=== PATIENT | male | born 1945 | race Caucasian/White ===

== ENCOUNTER 2019-01-07 17:07 | Emergency (ER) | payer OTHER, MEDICAID ==
[~2019-01-07] VITALS: Ht 160 cm; Wt 76.2 kg
[~2019-01-07 17:07] MED LIST: ALPR1TAB2 PO; ASPI-862 PO; CALC625T64 PO; FURO-149 PO; GLU850 PO; HYDR12.55 PO; INDO-12 PO; LIP40 PO; LISI-600 PO; OMEP40CA33 PO; SER25 PO; SITA100T11 PO
[2019-01-07 17:40] VITALS: BP_SYST 139
[2019-01-07 17:48] LABS: BASOPHILS # (AUTO) 0.1 K/uL (0.0-0.2); BASOPHILS % (AUTO) 0.6 % (0.0-2.0); EOSINOPHILS # (AUTO) 0.3 K/uL (0.0-0.4); EOSINOPHILS % (AUTO) 2.9 % (0.0-4.0); HEMATOCRIT 39.8 % (36-54); HEMOGLOBIN 12.8 g/dL (14.0-18.0); LYMPHOCYTES # (AUTO) 1.7 K/uL (1.0-5.5); MEAN CORPUSCULAR HEMOGLOBIN 24 pg (27-31); MEAN CORPUSCULAR HGB CONC 32 % (32-36); MEAN CORPUSCULAR VOLUME 75 fL (79.0-98.0); MONOCYTES # (AUTO) 0.9 K/uL (0.0-1.0); MONOCYTES % (AUTO) 9.1 % (1.7-9.3); NEUTROPHILS # (AUTO) 7.1 K/uL (1.8-7.7); NEUTROPHILS % (AUTO) 70.4 % (40.0-70.0); PLATELET COUNT (AUTO) 254 K/uL (130-430); RED CELL DISTRIBUTION WIDTH 18.1 % (9.0-15.0); WHITE BLOOD COUNT (AUTO) 10.1 K/uL (4.8-10.8)
[2019-01-07 17:56] LABS: ANION GAP 15 (5-15); CALCIUM 9.2 mg/dL (8.4-11.0); CHLORIDE 101 mmol/L (98-107); CREATININE 1.66 mg/dL (0.55-1.30); GLUCOSE 144 mg/dL (70-99); POTASSIUM 3.9 mmol/L (3.5-5.1); SODIUM SERUM 140 mmol/L (136-145); UREA NITROGEN, BLOOD 33 mg/dL (8-21)
[2019-01-07 18:01] LABS: ALANINE AMINOTRANSFERASE 41 U/L (12-78); ALBUMIN 3.6 g/dL (3.4-4.8); ASPARTATE AMINOTRANSFERASE 30 U/L (10-37); TOTAL BILIRUBIN 0.2 mg/dL (0.0-1.0)
[2019-01-07 18:04] LABS: ACETAMINOPHEN < 1 ug/mL (1-30); ALCOHOL, BLOOD < 3 mg/dL (<10)
[2019-01-07 18:28] LABS: BILIRUBIN,URINE NEGATIVE (NEGATIVE); BLOOD, URINE 3+ (NEGATIVE); COLOR,URINE YELLOW (YELLOW); GLUCOSE,URINE NEGATIVE (NEGATIVE); KETONES,URINE TRACE (NEGATIVE); LEUKOCYTE ESTERASE ,URINE NEGATIVE (NEGATIVE); NITRITE, URINE NEGATIVE (NEGATIVE); PROTEIN URINE 2+ (NEGATIVE)
[2019-01-07 18:34] LABS: CLARITY/URINE HAZY (CLEAR)
[2019-01-07 18:36] LABS: BACTERIA,URINE FEW /HPF (None Seen); MUCUS,URINE None Seen /LPF (None Seen); RBC,URINE 20-50 /HPF (0-3); WBC,URINE 0-3 /HPF (0-3)
[2019-01-07 18:37] LABS: CHOLESTEROL 158 mg/dL (<200); HDL CHOLESTEROL 62 mg/dL (>45); LDL CHOLESTEROL 74 mg/dL (<100); TRIGLYCERIDES 56 mg/dL (30-150)
[2019-01-07 18:39] LABS: BARBITURATE, URINE NEGATIVE (NEG <=200); BENZODIAZEPINE, URINE NEGATIVE (NEG <=150); CANNABINOID, URINE NEGATIVE (NEG <=50); COCAINE, URINE NEGATIVE (NEG <=150); METHAMPHETAMINES SCREEN,URINE NEGATIVE (NEG <=500); OPIATE, URINE NEGATIVE (NEG <=100); PHENCYCLIDINE SCREEN,URINE NEGATIVE (NEG <=25); UR TRICYCLIC ANTIDEPRESSANTS NEGATIVE (NEG <=300); URINE AMPHETAMINE NEGATIVE (NEG <=500); URINE METHADONE NEGATIVE (NEG <=200); URINE OXYCODONE SCREEN NEGATIVE (NEG <=100); URINE PROPOXYPHENE SCREEN NEGATIVE (NEG <=300)
[2019-01-07 21:50] VITALS: BP_SYST 139
== END 2019-01-07 21:50 ==
LOC: SED 17:07
DX: I10 Essential (primary) hypertension (principal); E11.9 Type 2 diabetes mellitus without complications; K21.9 Gastro-esophageal reflux disease without esophagitis; Z02.89 Encounter for other administrative examinations; Z79.82 Long term (current) use of aspirin; Z79.84 Long term (current) use of oral hypoglycemic drugs; Z79.899 Other long term (current) drug therapy
CPT/HCPCS: 36415; 80053; 80061; 80307; 81000; 83036; 85025; 87081; 99285; G0480; G0481; G0482

== ENCOUNTER 2019-01-09 07:40 | Outpatient (CLI) | payer OTHER ==
[2019-01-09 08:46] LABS: BASOPHILS % (AUTO) 0.6 % (0.0-2.0); EOSINOPHILS # (AUTO) 0.4 K/uL (0.0-0.4); EOSINOPHILS % (AUTO) 5.2 % (0.0-4.0); HEMATOCRIT 36.2 % (36-54); HEMOGLOBIN 11.5 g/dL (14.0-18.0); LYMPHOCYTES # (AUTO) 1.3 K/uL (1.0-5.5); LYMPHOCYTES % (AUTO) 14.9 % (20.5-51.5); MEAN CORPUSCULAR HEMOGLOBIN 24 pg (27-31); MEAN CORPUSCULAR HGB CONC 32 % (32-36); MEAN CORPUSCULAR VOLUME 76 fL (79.0-98.0); MONOCYTES # (AUTO) 0.7 K/uL (0.0-1.0); MONOCYTES % (AUTO) 8.6 % (1.7-9.3); NEUTROPHILS # (AUTO) 6.1 K/uL (1.8-7.7); NEUTROPHILS % (AUTO) 70.7 % (40.0-70.0); PLATELET COUNT (AUTO) 211 K/uL (130-430); RED BLOOD CELL COUNT(AUTO) 4.75 MIL/uL (4.2-6.2); RED CELL DISTRIBUTION WIDTH 18.1 % (9.0-15.0); WHITE BLOOD COUNT (AUTO) 8.7 K/uL (4.8-10.8)
[2019-01-09 09:10] LABS: ANION GAP 8 (5-15); CALCIUM 8.4 mg/dL (8.4-11.0); CHLORIDE 106 mmol/L (98-107); CREATININE 1.29 mg/dL (0.55-1.30); GLUCOSE 86 mg/dL (70-99); POTASSIUM 3.5 mmol/L (3.5-5.1); SODIUM SERUM 141 mmol/L (136-145); UREA NITROGEN, BLOOD 32 mg/dL (8-21)
== END 2019-01-09 21:01 | disposition home or self-care (01) ==
LOC: SLB 07:40
PROVIDERS: ATTEND Psychiatry & Neurology Psychiatry
DX: Z00.00 Encounter for general adult medical examination without abnormal findings (principal)
CPT/HCPCS: 36415; 80048; 85025

== ENCOUNTER 2020-12-04 11:11 | Emergency (ER) | payer OTHER, MEDICAID ==
[~2020-12-04] VITALS: Ht 175.3 cm; Wt 77.1 kg
[~2020-12-04 11:11] MED LIST changes: -LISI-600 PO; +LISI20TA30 PO; +OMEP40CA20 PO; -OMEP40CA33 PO
--- NOTE | 2020-12-04 11:15 | NUR ---
Patient to ER bed H1 to gown for evaluation. Side rails up.
[2020-12-04 11:16] VITALS: BP_SYST 148
--- NOTE | 2020-12-04 11:19 | NUR ---
ER DR. BENOIT AT THE BEDSIDE EXAMINING PT
--- NOTE | 2020-12-04 11:20 | NUR ---
PT SANGEETHA FROM [facility] FOR MEDICAL CLEARANCE TO [facility] FOR INCREASED AGRESSIVE BEHAVIOR TOWARDS STAFF. PT TO GO TO ROOM 114A
--- NOTE | 2020-12-04 11:30 | NUR ---
LAB AT THE BEDSIDE FOR BLOOD DRAW
[2020-12-04 11:42] LABS: BASOPHILS # (AUTO) 0.1 K/uL (0.0-0.2); BASOPHILS % (AUTO) 0.8 % (0.0-2.0); EOSINOPHILS # (AUTO) 0.2 K/uL (0.0-0.4); EOSINOPHILS % (AUTO) 2.6 % (0.0-4.0); HEMATOCRIT 42.9 % (36-54); HEMOGLOBIN 13.9 g/dL (14.0-18.0); LYMPHOCYTES # (AUTO) 1.7 K/uL (1.0-5.5); LYMPHOCYTES % (AUTO) 19.2 % (20.5-51.5); MEAN CORPUSCULAR HEMOGLOBIN 25 pg (27-31); MEAN CORPUSCULAR HGB CONC 33 % (32-36); MEAN CORPUSCULAR VOLUME 76 fL (79.0-98.0); MONOCYTES # (AUTO) 0.8 K/uL (0.0-1.0); MONOCYTES % (AUTO) 8.8 % (1.7-9.3); NEUTROPHILS # (AUTO) 6.2 K/uL (1.8-7.7); NEUTROPHILS % (AUTO) 68.6 % (40.0-70.0); PLATELET COUNT (AUTO) 242 K/uL (130-430); RED BLOOD CELL COUNT(AUTO) 5.63 MIL/uL (4.2-6.2); RED CELL DISTRIBUTION WIDTH 16.5 % (9.0-15.0); WHITE BLOOD COUNT (AUTO) 9.1 K/uL (4.8-10.8)
[2020-12-04 11:48] LABS: ANION GAP 14 (5-15); CALCIUM 9.3 mg/dL (8.4-11.0); CHLORIDE 105 mmol/L (98-107); CREATININE 1.34 mg/dL (0.55-1.30); GLUCOSE 105 mg/dL (70-99); SODIUM SERUM 142 mmol/L (136-145); UREA NITROGEN, BLOOD 23 mg/dL (8-21)
[2020-12-04 11:54] LABS: ALANINE AMINOTRANSFERASE 23 U/L (12-78); ALBUMIN 3.5 g/dL (3.4-4.8); ASPARTATE AMINOTRANSFERASE 19 U/L (10-37); TOTAL BILIRUBIN 0.2 mg/dL (0.0-1.0)
[2020-12-04 11:55] LABS: ACETAMINOPHEN < 1 ug/mL (1-30); ALCOHOL, BLOOD < 3 mg/dL (<10)
[2020-12-04 11:56] LABS: CHOLESTEROL 167 mg/dL (<200); HDL CHOLESTEROL 56 mg/dL (>45); LDL CHOLESTEROL 91 mg/dL (<100); TRIGLYCERIDES 116 mg/dL (30-150)
--- NOTE | 2020-12-04 12:00 | NUR ---
PT MEDICALLY CLEARED.
[2020-12-04 16:46] LABS: BILIRUBIN,URINE NEGATIVE (NEGATIVE); CLARITY/URINE CLEAR (CLEAR); COLOR,URINE YELLOW (YELLOW); GLUCOSE,URINE NEGATIVE (NEGATIVE); KETONES,URINE NEGATIVE (NEGATIVE); LEUKOCYTE ESTERASE ,URINE NEGATIVE (NEGATIVE); NITRITE, URINE NEGATIVE (NEGATIVE); PH,URINE 5.5 (5.0-8.0); PROTEIN URINE 1+ (NEGATIVE); UROBILINOGEN,URINE 0.2 (0.2-1.0)
[2020-12-04 16:50] LABS: BLOOD, URINE TRACE (NEGATIVE)
[2020-12-04 17:06] LABS: BARBITURATE, URINE NEGATIVE (NEG <=200); BENZODIAZEPINE, URINE NEGATIVE (NEG <=150); CANNABINOID, URINE NEGATIVE (NEG <=50); COCAINE, URINE NEGATIVE (NEG <=150); METHAMPHETAMINES SCREEN,URINE NEGATIVE (NEG <=500); OPIATE, URINE NEGATIVE (NEG <=100); PHENCYCLIDINE SCREEN,URINE NEGATIVE (NEG <=25); UR TRICYCLIC ANTIDEPRESSANTS NEGATIVE (NEG <=300); URINE AMPHETAMINE NEGATIVE (NEG <=500); URINE METHADONE NEGATIVE (NEG <=200); URINE OXYCODONE SCREEN NEGATIVE (NEG <=100); URINE PROPOXYPHENE SCREEN NEGATIVE (NEG <=300)
[2020-12-04 17:10] LABS: BACTERIA,URINE RARE /HPF (None Seen); RBC,URINE NONE SEEN /HPF (0-3); WBC,URINE NONE SEEN /HPF (0-3)
[2020-12-04 17:45] VITALS: BP_SYST 169
--- NOTE | 2020-12-04 17:45 | NUR ---
Patient to be transferred to [facility]. Is being transferred due to higher level of care. Receiving facility has accepting physician and available space. ER physician has signed transfer form. Patient or responsible democrat has agreed to transfer and signed form. Patient belongings inventoried and will be sent with patient. Copy of nursing notes, lab reports, EKG, Physicians Orders and X-rays to be sent with patient. Report called to [facility] at receiving facility. Receiving physician is . [facility] service has been called for transfer.
== END 2020-12-04 17:45 ==
LOC: SED 11:11
DX: F20.9 Schizophrenia, unspecified (principal); I10 Essential (primary) hypertension; E11.9 Type 2 diabetes mellitus without complications; Z20.822 Contact with and (suspected) exposure to COVID-19; Z79.84 Long term (current) use of oral hypoglycemic drugs; Z79.899 Other long term (current) drug therapy
CPT/HCPCS: 36415; 80053; 80061; 80307; 81000; 83036; 85025; 87081; 87426; 99285; G0480; G0481; G0482

== ENCOUNTER 2020-12-04 20:03 | Emergency (ER) | payer OTHER, MEDICAID ==
[~2020-12-04] VITALS: Ht 167.6 cm; Wt 68.9 kg
[2020-12-04 20:07] VITALS: BP_SYST 197
--- NOTE | 2020-12-04 21:56 | NUR ---
Placed in room 05 . Placed on cardiac nurse, blood pressure machine and pulse oximeter. To gown for exam. Side rails up. Report given to MIKY CANCHOLA
[2020-12-04] MEDS ORDERED: LISINOPRIL 10 MG TABLET (PRINIVIL) PO ONE (22:00)
--- NOTE | 2020-12-04 22:01 | NUR ---
Dr. Vila bedside for pt eval
--- NOTE | 2020-12-04 22:05 | NUR ---
Joe VIVAS to ED he was seen here earlier, medical cleared, brought back from [facility] after being denied for elevated heart rate and blood pressure with systolic in the 190s. Patient seen here earlier and was combative with nursing staff, refusing to take his hypertensive meds. His vital signs had stabilized and he was medically cleared. Per EMS, patient with history of dementia and has been A&O x1, only responding to his name.
[2020-12-04] MEDS ORDERED: LISINOPRIL 10 MG TABLET (PRINIVIL) ONE (22:33)
--- NOTE | 2020-12-04 23:12 | NUR ---
VSS, BP and HR trending a bit lower, Dr. Quintanilla aware
[2020-12-05 00:13] LABS: BASOPHILS % (AUTO) 0.4 % (0.0-2.0); EOSINOPHILS % (AUTO) 0.2 % (0.0-4.0); HEMATOCRIT 41.6 % (36-54); HEMOGLOBIN 13.4 g/dL (14.0-18.0); LYMPHOCYTES # (AUTO) 1.2 K/uL (1.0-5.5); LYMPHOCYTES % (AUTO) 11.3 % (20.5-51.5); MEAN CORPUSCULAR HEMOGLOBIN 25 pg (27-31); MEAN CORPUSCULAR HGB CONC 32 % (32-36); MEAN CORPUSCULAR VOLUME 76 fL (79.0-98.0); MONOCYTES # (AUTO) 0.9 K/uL (0.0-1.0); MONOCYTES % (AUTO) 8.6 % (1.7-9.3); NEUTROPHILS # (AUTO) 8.7 K/uL (1.8-7.7); NEUTROPHILS % (AUTO) 79.5 % (40.0-70.0); PLATELET COUNT (AUTO) 251 K/uL (130-430); RED BLOOD CELL COUNT(AUTO) 5.44 MIL/uL (4.2-6.2); RED CELL DISTRIBUTION WIDTH 15.9 % (9.0-15.0); WHITE BLOOD COUNT (AUTO) 10.9 K/uL (4.8-10.8)
[2020-12-05] MEDS ORDERED: HALOPERIDOL LACTATE 5 MG/ML VIAL IM ONE (00:15)
--- NOTE | 2020-12-05 00:18 | NUR ---
Jeremias salmon in ED - 12/05/20 at 0130 by YURIDIA Pt remains in stable condition, family member bedside for emotional support
--- NOTE | 2020-12-05 00:32 | NUR ---
Pt remains in stable condition, as well as verbalizing that he feels fine
[2020-12-05 00:52] LABS: ALANINE AMINOTRANSFERASE 21 U/L (12-78); ALBUMIN 3.2 g/dL (3.4-4.8); ANION GAP 9 (5-15); ASPARTATE AMINOTRANSFERASE 16 U/L (10-37); CALCIUM 9.1 mg/dL (8.4-11.0); CHLORIDE 103 mmol/L (98-107); CREATININE 1.16 mg/dL (0.55-1.30); GLUCOSE 117 mg/dL (70-99); POTASSIUM 3.3 mmol/L (3.5-5.1); SODIUM SERUM 137 mmol/L (136-145); THYROID STIMULATING HORMONE 1.27 uIu/mL (0.36-3.74); TOTAL BILIRUBIN 0.3 mg/dL (0.0-1.0); UREA NITROGEN, BLOOD 18 mg/dL (8-21)
--- NOTE | 2020-12-05 01:58 | NUR ---
Called to inquire about BLS transport pt back
--- NOTE | 2020-12-05 02:53 | NUR ---
JAYCEE AT [facility] FOR CONSULTING PRACTICE DIRECTOR [id number]. MIKY CANCHOLA NOTIFIED
--- NOTE | 2020-12-05 03:35 | NUR ---
Pt remains in stable condition, resting on gurney rails up
--- NOTE | 2020-12-05 04:58 | NUR ---
Spoke with Rodney Acosta, report given and they're expecting pt's return after [id number]
--- NOTE | 2020-12-05 07:00 | NUR ---
INFORMED BY TRAVELING BUYER NURSE THAT [employer] [facility]ILITY EXAMINER WILL BE AT 0930. PT RESTING QUIETLY
--- NOTE | 2020-12-05 07:23 | NUR ---
RECEIVED PT, HYPERTENSIVE AT 205/106, CN MANUEL INFORMED. PER REPORT PT IS DISCHARGED ALREADY AND WAITING FOR TRANSPORTATION. DR DARBY INFORMED, ORDERS RECEIEVED.
[2020-12-05] MEDS ORDERED: cloNIDine HCL 0.1 MG TABLET PO ONE (07:45)
--- NOTE | 2020-12-05 07:46 | NUR ---
PT HYPERTENSIVE AT 199/103, MEDICATED ORDERED. PT DENIES ANY PAIN OR SOB.
--- NOTE | 2020-12-05 09:10 | NUR ---
REPEAT BP X3 IN BOTH ARMS, DIFFERENT MACHINES 74/48, P-66. DR DARBY INFORMED. AT BEDSIDE FOR RE-EXAM. CN NOTIFIED.
[2020-12-05] MEDS ORDERED: NS 500 ML IV ONE (09:30)
--- NOTE | 2020-12-05 09:31 | NUR ---
IV SALINE LOCK PLACED TO RT AC. IV FLUIDS STARTED ORDERED.
--- NOTE | 2020-12-05 09:50 | NUR ---
[facility] TRANSPORT AT BEDSIDE TO [facility] PATIENT. BP 99/51, HR-69 DR DARBY INFORMED, CN NOTIFIED. PT STABLE FOR TRANSFER PER DR DARBY. Addendum: 12/05/20 at 1014 by [email or web address] DC WITH [facility], ALL BELONGINGS WITH PT. DC [facility] TRANSPORT STAFF.
[2020-12-05 10:15] VITALS: BP_SYST 99
== END 2020-12-05 09:50 ==
LOC: SED 20:03
DX: I10 Essential (primary) hypertension (principal); E11.9 Type 2 diabetes mellitus without complications; K21.9 Gastro-esophageal reflux disease without esophagitis; Z79.899 Other long term (current) drug therapy; Z79.82 Long term (current) use of aspirin; Z79.84 Long term (current) use of oral hypoglycemic drugs
CPT/HCPCS: 36415; 80053; 83735; 84443; 84484; 85025; 93005; 96372; 99285

== ENCOUNTER 2023-05-20 16:19 | Inpatient (IN) | payer OTHER, MEDICAID ==
[~2023-05-20] VITALS: Ht 177.8 cm; Wt 78.5 kg
[~2023-05-20 16:19] MED LIST changes: +ALLO100T PO; +CHOL50006 PO; +DIVA250T34 PO; +DOCU100T9 PO; +ESCI20TA PO; -FURO-149 PO; -GLU850 PO; -HYDR12.55 PO; -INDO-12 PO; +LIP20 PO; -LIP40 PO; -LISI20TA30 PO; +MELA3TAB55 PO; +OLAN10TA3 PO
[2023-05-20 16:28] VITALS: BP_SYST 168; PULSE 86; RESP 19; TEMP 97.3; O2SAT 94
[2023-05-20 17:14] LABS: BASOPHILS % (AUTO) 0.4 % (0.0-2.0); EOSINOPHILS # (AUTO) 0.2 K/uL (0.0-0.4); EOSINOPHILS % (AUTO) 2.8 % (0.0-4.0); HEMOGLOBIN 11.4 g/dL (14.0-18.0); LYMPHOCYTES # (AUTO) 1.6 K/uL (1.0-5.5); LYMPHOCYTES % (AUTO) 19.3 % (20.5-51.5); MEAN CORPUSCULAR HEMOGLOBIN 25 pg (27-31); MEAN CORPUSCULAR HGB CONC 33 % (32-36); MEAN CORPUSCULAR VOLUME 78 fL (79.0-98.0); MONOCYTES % (AUTO) 11.4 % (1.7-9.3); NEUTROPHILS # (AUTO) 5.5 K/uL (1.8-7.7); NEUTROPHILS % (AUTO) 66.1 % (40.0-70.0); PLATELET COUNT (AUTO) 193 K/uL (130-430); RED BLOOD CELL COUNT(AUTO) 4.51 MIL/uL (4.2-6.2); RED CELL DISTRIBUTION WIDTH 17.2 % (9.0-15.0); WHITE BLOOD COUNT (AUTO) 8.4 K/uL (4.8-10.8)
[2023-05-20 17:16] LABS: ANION GAP 7 (5-15); CALCIUM 8.4 mg/dL (8.4-11.0); CARBON DIOXIDE 31 mmol/L (23-29); CHLORIDE 105 mmol/L (98-107); CREATININE 2.36 mg/dL (0.55-1.30); GLUCOSE 123 mg/dL (74-106); POTASSIUM 3.8 mmol/L (3.5-5.1); SODIUM SERUM 143 mmol/L (136-145); UREA NITROGEN, BLOOD 40 mg/dL (8-21)
[2023-05-20 17:18] LABS: INR 1.1 (0.80-1.20)
[2023-05-20 17:31] LABS: ALANINE AMINOTRANSFERASE 21 U/L (12-78); ALBUMIN 2.7 g/dL (3.4-4.8); ASPARTATE AMINOTRANSFERASE 16 U/L (10-37); BILIRUBIN,DIRECT < 0.1 mg/dL (0.0-0.3); TOTAL BILIRUBIN 0.2 mg/dL (0.0-1.0); TOTAL PROTEIN, SERUM 6.8 g/dL (6.4-8.3)
[2023-05-20 18:13] LABS: BILIRUBIN,URINE NEGATIVE (NEGATIVE); BLOOD, URINE NEGATIVE (NEGATIVE); CLARITY/URINE CLEAR (CLEAR); COLOR,URINE YELLOW (YELLOW); GLUCOSE,URINE NEGATIVE (NEGATIVE); KETONES,URINE NEGATIVE (NEGATIVE); LEUKOCYTE ESTERASE ,URINE NEGATIVE (NEGATIVE); NITRITE, URINE NEGATIVE (NEGATIVE); PROTEIN URINE 3+ (NEGATIVE); UROBILINOGEN,URINE 0.2 (0.2-1.0)
[2023-05-20 18:28] LABS: BACTERIA,URINE RARE /HPF (None Seen)
[2023-05-20] MEDS: NACL 0.9% 1,000 ML IV ONE (19:15)
[2023-05-20] MEDS ORDERED: INSULIN LISPRO SLIDING SCALE 100 UNITS/ML, 3 ML VIAL (humaLOG) SUBCUT PRN (20:15)
[2023-05-20] MEDS: 0.45% NACL 1,000 ML IV SCH (21:03)
[2023-05-20 22:56] VITALS: BP_SYST 212; PULSE 90; RESP 18; TEMP 97.3; O2SAT 98
[2023-05-20] MEDS: hydrALAZINE HCL 20 MG/ML VIAL IVP PRN (23:25)
[2023-05-20] MEDS: CARVEDILOL 25 MG TABLET (COREG) PO SCH (23:25)
[2023-05-20] MEDS: amLODIPine BESYLATE 10 MG TABLET PO SCH (23:26)
[2023-05-21] VITALS (7 sets, daily range): BP systolic 140–159; PULSE 68–82; RESP 16–18; TEMP 97.1–97.6; O2SAT 96–99
[2023-05-21] MEDS ORDERED: NOR10 PO (12:35)
[2023-05-21] MEDS ORDERED: ACET325T53 PO (12:35)
[2023-05-21] MEDS ORDERED: MOM PO (12:35)
[2023-05-21] MEDS ORDERED: LOSA100T24 PO (12:35)
[2023-05-21] MEDS ORDERED: DIVA-74 PO (12:35)
[2023-05-21] MEDS ORDERED: ALOG12.5 PO (12:35)
[2023-05-21] MEDS ORDERED: ACETAMINOPHEN 325 MG TABLET PO PRN (17:30)
[2023-05-21] MEDS: MILK OF MAGNESIA 30 ML UDC PO SCH (21:00)
[2023-05-21] MEDS: DOCUSATE SODIUM 100 MG CAPSULE PO SCH (21:43)
[2023-05-21] MEDS: QUEtiapine FUMARATE 25 MG TABLET PO SCH (21:43)
[2023-05-21] MEDS: DIVALPROEX SODIUM 500 MG TABLET( DEPAKOTE) PO SCH (21:44)
[2023-05-21] MEDS: CHOLECALCIFEROL (VITAMIN D3) 5,000 UNIT TABLET PO SCH (21:45)
[2023-05-21] MEDS: OLANZapine 10 MG TABLET PO SCH (21:46)
[2023-05-21] MEDS: ATORVASTATIN 20 MG TABLET PO SCH (21:46)
[2023-05-21] MEDS: MELATONIN 3 MG TABLET PO SCH (21:47)
[2023-05-21] MEDS: ENOXAPARIN SODIUM 30 MG/0.3 ML SYRINGE SUBCUT SCH (21:47)
[2023-05-22 02:00] VITALS: BP_SYST 141; PULSE 78; RESP 18; TEMP 98.4; O2SAT 99
[2023-05-22 07:12] LABS: BASOPHILS % (AUTO) 0.3 % (0.0-2.0); EOSINOPHILS # (AUTO) 0.3 K/uL (0.0-0.4); EOSINOPHILS % (AUTO) 2.7 % (0.0-4.0); HEMATOCRIT 35.9 % (36-54); HEMOGLOBIN 11.7 g/dL (14.0-18.0); LYMPHOCYTES % (AUTO) 21.3 % (20.5-51.5); MEAN CORPUSCULAR HEMOGLOBIN 26 pg (27-31); MEAN CORPUSCULAR HGB CONC 33 % (32-36); MEAN CORPUSCULAR VOLUME 79 fL (79.0-98.0); MONOCYTES # (AUTO) 0.7 K/uL (0.0-1.0); MONOCYTES % (AUTO) 7.2 % (1.7-9.3); NEUTROPHILS # (AUTO) 6.3 K/uL (1.8-7.7); NEUTROPHILS % (AUTO) 68.5 % (40.0-70.0); PLATELET COUNT (AUTO) 208 K/uL (130-430); RED BLOOD CELL COUNT(AUTO) 4.57 MIL/uL (4.2-6.2); RED CELL DISTRIBUTION WIDTH 17.4 % (9.0-15.0); WHITE BLOOD COUNT (AUTO) 9.2 K/uL (4.8-10.8)
[2023-05-22 07:15] LABS: ANION GAP 11 (5-15); CALCIUM 8.5 mg/dL (8.4-11.0); CARBON DIOXIDE 26 mmol/L (23-29); CHLORIDE 107 mmol/L (98-107); CREATININE 2.19 mg/dL (0.55-1.30); GLUCOSE 106 mg/dL (74-106); POTASSIUM 3.9 mmol/L (3.5-5.1); SODIUM SERUM 144 mmol/L (136-145); UREA NITROGEN, BLOOD 44 mg/dL (8-21)
[2023-05-22 07:47] VITALS: BP_SYST 144; PULSE 61; RESP 19; TEMP 96.8; O2SAT 92
[2023-05-22] MEDS: CITALOPRAM HYDROBROMIDE 20 MG TABLET PO SCH (07:59)
[2023-05-22] MEDS: ALLOPURINOL 100 MG TABLET (ZYLOPRIM) PO SCH (08:03)
[2023-05-22 13:00] VITALS: BP_SYST 138; PULSE 75; RESP 18; TEMP 97.8; O2SAT 94
[2023-05-22 15:07] VITALS: BP_SYST 139; PULSE 61; RESP 18; TEMP 97.1; O2SAT 97
[2023-05-22 20:00] VITALS: BP_SYST 159; PULSE 72; RESP 15; TEMP 97.1; O2SAT 98
[2023-05-23 00:25] VITALS: BP_SYST 148; PULSE 84; RESP 15; TEMP 98.4; O2SAT 99
[2023-05-23 08:12] LABS: ALANINE AMINOTRANSFERASE 18 U/L (12-78); ALBUMIN 2.8 g/dL (3.4-4.8); ANION GAP 11 (5-15); ASPARTATE AMINOTRANSFERASE 12 U/L (10-37); CALCIUM 8.7 mg/dL (8.4-11.0); CARBON DIOXIDE 27 mmol/L (23-29); CHLORIDE 106 mmol/L (98-107); CREATININE 1.94 mg/dL (0.55-1.30); GLUCOSE 92 mg/dL (74-106); POTASSIUM 3.5 mmol/L (3.5-5.1); SODIUM SERUM 144 mmol/L (136-145); TOTAL BILIRUBIN 0.2 mg/dL (0.0-1.0); UREA NITROGEN, BLOOD 39 mg/dL (8-21)
[2023-05-23 08:16] VITALS: BP_SYST 152; PULSE 65; RESP 16; TEMP 96.2; O2SAT 98
[2023-05-23 11:26] VITALS: BP_SYST 156; PULSE 68; RESP 18; TEMP 97.2; O2SAT 99
[2023-05-23 16:17] VITALS: BP_SYST 138; PULSE 71; RESP 16; TEMP 96.8; O2SAT 100
[2023-05-23 20:18] VITALS: BP_SYST 149; PULSE 74; RESP 17; TEMP 97.4; O2SAT 98; O2SAT 99
[2023-05-24 00:09] VITALS: BP_SYST 147; PULSE 78; RESP 16; TEMP 97.6; O2SAT 98
[2023-05-24 08:00] VITALS: BP_SYST 101; PULSE 72; RESP 17; TEMP 96.7; O2SAT 96
[2023-05-24 08:25] VITALS: O2SAT 97
[2023-05-24 19:00] VITALS: BP_SYST 103; PULSE 75; RESP 16; TEMP 96.6; O2SAT 96
[2023-05-24 20:00] VITALS: BP_SYST 103; PULSE 75; RESP 16; TEMP 96.6; O2SAT 96
[2023-05-25] VITALS: BP_SYST 105; PULSE 74; RESP 16; TEMP 96.2; O2SAT 96
[2023-05-25 08:00] VITALS: O2SAT 99
[2023-05-25 11:16] VITALS: BP_SYST 142; PULSE 69; RESP 16; TEMP 96.4; O2SAT 93
[2023-05-25 15:21] VITALS: BP_SYST 126; PULSE 62; RESP 16; TEMP 97.5; O2SAT 94
[2023-05-25 16:00] LABS: BASOPHILS % (AUTO) 0.4 % (0.0-2.0); EOSINOPHILS # (AUTO) 0.4 K/uL (0.0-0.4); EOSINOPHILS % (AUTO) 4.9 % (0.0-4.0); HEMATOCRIT 33.6 % (36-54); HEMOGLOBIN 10.9 g/dL (14.0-18.0); LYMPHOCYTES # (AUTO) 1.4 K/uL (1.0-5.5); LYMPHOCYTES % (AUTO) 15.9 % (20.5-51.5); MEAN CORPUSCULAR HEMOGLOBIN 25 pg (27-31); MEAN CORPUSCULAR HGB CONC 32 % (32-36); MEAN CORPUSCULAR VOLUME 78 fL (79.0-98.0); MONOCYTES # (AUTO) 0.9 K/uL (0.0-1.0); MONOCYTES % (AUTO) 10.8 % (1.7-9.3); NEUTROPHILS # (AUTO) 5.9 K/uL (1.8-7.7); PLATELET COUNT (AUTO) 178 K/uL (130-430); RED BLOOD CELL COUNT(AUTO) 4.29 MIL/uL (4.2-6.2); RED CELL DISTRIBUTION WIDTH 16.8 % (9.0-15.0); WHITE BLOOD COUNT (AUTO) 8.6 K/uL (4.8-10.8)
[2023-05-25 16:05] LABS: ANION GAP 8 (5-15); CALCIUM 8.2 mg/dL (8.4-11.0); CARBON DIOXIDE 27 mmol/L (23-29); CHLORIDE 107 mmol/L (98-107); CREATININE 1.97 mg/dL (0.55-1.30); GLUCOSE 143 mg/dL (74-106); POTASSIUM 4.2 mmol/L (3.5-5.1); SODIUM SERUM 142 mmol/L (136-145); UREA NITROGEN, BLOOD 40 mg/dL (8-21)
[2023-05-25 16:14] VITALS: BP_SYST 142; PULSE 80; RESP 18; TEMP 98.6; O2SAT 99
== END 2023-05-25 17:55 | DRG 682 ==
LOC: SED 16:19 → SMU 19:18
PROVIDERS: ADMIT Family Medicine; ATTEND Family Medicine
DX: N17.9 Acute kidney failure, unspecified (principal); G93.41 Metabolic encephalopathy; E86.0 Dehydration; F03.A0 Unspecified dementia, mild, without behavioral disturbance, psychotic disturbance, mood disturbance, and anxiety; I10 Essential (primary) hypertension; K21.9 Gastro-esophageal reflux disease without esophagitis; Z79.899 Other long term (current) drug therapy
CPT/HCPCS: 36415; 71045; 71250-TC; 80048; 80053; 80076; 81000; 81001; 81015; 82948; 83605; 83735; 85025; 85610; 85730; 87040; 87081; 87086; 92610-GN; 93005; 99285; J0360; J1650